=== PATIENT | female | born 1995 | race Hispanic/Latino ===

== ENCOUNTER 2018-10-09 09:08 | Outpatient (CLI) | payer BC ==
--- NOTE | 2018-10-09 09:55 | ULT ---
RIGHT BREAST ULTRASOUND: History: Palpable mass at the 3 o'clock position of the right breast. Technique: Multiplanar grayscale and color doppler images were obtained in a right breast ultrasound. FINDINGS: Abnormal appearing breast parenchyma is seen at the area of palpable abnormality. No cyst is identifi ed. No suspicious shadowing or solid mass is seen. IMPRESSION: BIRADS category 1 - negative. Annual screening mammography is recommended at the age of 40. POS: [facility]
== END 2018-10-09 09:09 | disposition home or self-care (01) ==
LOC: BICULT 09:08
PROVIDERS: ATTEND Obstetrics & Gynecology
DX: N63.10 Unspecified lump in the right breast, unspecified quadrant (principal)

== ENCOUNTER 2020-02-24 12:48 | Outpatient (CLI) | payer BC ==
--- NOTE | 2020-02-24 13:59 | RAD ---
EXAM: CERVICAL SPINE SEVEN VIEWS INCLUDING OBLIQUE VIEWS AND FLEXION AND EXTENSION VIEWS: 02/24/20 HISTORY: Cervical radiculopathy. FINDINGS: C7-T1 is partially obscured on the lateral view. C1 and C2 odontoid are mostly obscured on the AP ope n mouth views. No evidence for acute fracture or dislocation. No prevertebral soft tissue swelling. N o abnormal translation between flexion and extension. IMPRESSION: Unremarkable cervical spine series. POS: [facility]
== END 2020-02-24 12:49 | disposition home or self-care (01) ==
LOC: BICRAD 12:48
PROVIDERS: ATTEND Family Medicine
DX: M54.12 Radiculopathy, cervical region (principal)
CPT/HCPCS: 72052

== ENCOUNTER 2024-06-04 08:14 | Outpatient (CLI) | payer BC | END 2024-06-04 08:15 | disposition home or self-care (01) | LOC: ULT 08:14 | PROVIDERS: ATTEND Specialist | DX: E04.1 Nontoxic single thyroid nodule (principal) | CPT/HCPCS: 76536 ==